=== PATIENT | female | born 1980 | race Two or more races ===

== ENCOUNTER → 2025-01-15 | Outpatient (CLI) | payer OTHER, SELFPAY ==
--- NOTE | 2025-01-15 09:25 | XR_ITS ---
Examination: Lumbar spine, 5 views Technique: Lumbar spine AP, lateral, coned lateral lower lumbar spine, bilateral obliques 5 views Exam date and time: January 15, 2025 0944 hours INDICATIONS: Work injury 2021 to the lower back with persistent lower back pain. FINDINGS: Moderate osteopenia Mild to moderate arthritic change facet joints No lumbar fracture Mild lumbar spondylosis Mild to moderate lumbar disc narrowing L5-S1 IMPRESSION: [id number] lumbar disc narrowing L5-S1
--- NOTE | 2025-01-15 09:25 | XR_ITS ---
Examination: Thoracic spine 2 views Technique one AP lateral thoracic spine 2 views Exam date and time: January 15, 2025 0944 hours INDICATIONS: Work injury to the back one year ago with persistent back pain. FINDINGS: Moderate osteopenia No thoracic fracture Mild diffuse thoracic disc narrowing Mild thoracic spondylosis IMPRESSION: Mild diffuse thoracic degenerative disc disease
== END | disposition home or self-care (01) ==
LOC: CDIM 09:18
PROVIDERS: Referring Provider Orthopaedic Surgery; Visit Provider Orthopaedic Surgery
DX: M48.07 Spinal stenosis, lumbosacral region (principal); M51.34 Other intervertebral disc degeneration, thoracic region
CPT/HCPCS: 72070; 72110

== ENCOUNTER → 2025-07-22 | Outpatient (CLI) | payer BC, SELFPAY ==
[2025-07-22 17:28] LABS: Basophils # (Auto) 0.0 Thou/mm3 (0.0-0.2); Basophils % (Auto) 0 % (0-2.5); Eosinophils # (Auto) 0.0 Thou/mm3 (0.0-0.5); Eosinophils % (Auto) 0 % (0-10); Hematocrit 38.9 % (36.0-46.0); Hemoglobin 12.7 g/dL (12.0-16.0); Immature Granulocytes Auto 0.03 Thou/mm3 (0.00-0.00); Lymphocytes # (Auto) 2.2 Thou/mm3 (1.0-4.8); Lymphocytes % (Auto) 23 % (10-50); Mean Corpuscular HGB Conc 32.6 g/dl (31.0-37.0); Mean Corpuscular Hemoglobin 30.2 pg (25.0-35.0); Mean Corpuscular Volume 92 fL (80-100); Monocytes # (Auto) 0.5 Thou/mm3 (0.0-0.8); Monocytes % (Auto) 6 % (0-12); Neutrophils # (Auto) 6.7 Thou/mm3 (1.8-7.7); Neutrophils % (Auto) 71 % (37-80); Nucleated Red Blood Cell # 0.00 Thou/mm3 (0.00-0.00); Nucleated Red Blood Cell % 0 /100 WBC (0); Platelet Count 327 Thou/mm3 (140-440); RDW Standard Deviation 42.5 fL (36.4-46.3); Red Blood Count 4.21 Miln/mm3 (4.00-5.20); White Blood Count 9.5 Thou/mm3 (3.6-11.0)
[2025-07-22 17:35] LABS: INR 1.0 (0.9-1.3); Partial Thromboplastin Time 27.9 Seconds (22.0-36.0); Prothrombin Time 10.7 Seconds (9.0-12.2)
[2025-07-22 17:39] LABS: Glucose Estimated Average 103 mg/dL (80-131); Hemoglobin A1C 5.2 % Hgb (4.8-6.0)
[2025-07-22 17:50] LABS: Alanine Aminotransferase 9 U/L (10-49); Albumin, Serum 4.2 gm/dL (3.5-5.0); Albumin/Globulin Ratio 1.7 (1.2-2.2); Alkaline Phosphatase 89 U/L (46-116); Anion Gap 8 (7-16); Aspartate Amino Transferase 14 U/L (0-34); BUN/Creatinine Ratio 16 Ratio (12-20); Bilirubin,Total 0.4 mg/dL (0.3-1.2); Blood Urea Nitrogen 11 mg/dL (9-23); Calcium 9.9 mg/dL (8.3-10.6); Calcium (Corrected) 9.9 mg/dL (8.5-10.1); Carbon Dioxide 27.1 mMol/L (20.0-31.0); Cardiac Risk Estimate 2.6 RATIO (3.7-5.6); Chloride 107 mMol/L (98-107); Cholesterol 167 mg/dL (132-200); Creatinine (Component) 0.7 mg/dL (0.6-1.3); Globulin 2.5 gm/dL (2.3-3.5); Glucose 89 mg/dL (74-106); HDL Cholesterol 64 mg/dL (40-60); LDL Cholesterol,Calculated 74 mg/dL (0-130); Osmolality,Calculated 281 (275-295); Potassium 4.0 mMol/L (3.4-5.1); Sodium 142 mMol/L (136-145); Total Protein 6.7 gm/dL (5.7-8.2); Triglycerides 144 mg/dL (30-150); eGFR > 60 See Note
[2025-07-22 18:47] LABS: Path Review Blood Smear Sent to Pathologist
[2025-07-22 19:50] LABS: Parathyroid Hormone Intact 110.6 pg/ml (18.5-88.0)
[2025-07-22 19:56] LABS: Ferritin 115 ng/mL (7.3-270.7); Iron 31 mcg/dL (50-170); Percent Iron Saturation 10 % (20-55); Total Iron Binding Capacity 299 mcg/dL (250-425); Unsaturated Iron Binding 268 (225-295)
[2025-07-22 19:57] LABS: Folate 9.31 ng/mL (>5.38); Vitamin B12 520 pg/mL (211-911); Vitamin D 25 Hydroxy Total 33.1 ng/mL (7.3-40.2)
== END | disposition home or self-care (01) ==
LOC: COPL 15:20
PROVIDERS: PCP Specialist; Referring Provider Specialist; Visit Provider Specialist
DX: R23.3 Spontaneous ecchymoses (principal); Z98.84 Bariatric surgery status
CPT/HCPCS: 36415; 80053; 80061; 82306; 82607; 82728; 82746; 83036; 83540; 83550; 83970; 85025; 85610; 85730

== ENCOUNTER → 2025-08-11 | Outpatient (CLI) | payer BC, SELFPAY ==
--- NOTE | 2025-08-11 09:15 | XR_ITS ---
Examination: Screening digital mammography, bilateral Computer aided detection 3-D breast Tomosynthesis, bilateral Date and time of exam: August 11, 2025 0931 hours, compared to mammograms dating to March 06, 2017 Indication: Screening, patient states right breast pain 4 months Technique: Nonmagnified MLO, CC views of the breasts to been obtained, reconstructed from 3-D Tomosynthesis images. R2 computer aided detection program utilized for evaluation of suspicious masses and/or abnormal calcifications. 3-D Tomosynthesis images obtained. Findings: Scattered areas of fibroglandular density. Surgical clips retroareolar region right breast with retraction of the nipple Benign calcifications. Implants appear intact. No interval suspicious masses Impression: BI-RADS Category 0: Incomplete: Need additional imaging evaluation Given the patient's presentation of right breast pain 4 months, recommend bilateral breast sonography follow-up
== END | disposition home or self-care (01) ==
LOC: CDIM 09:21
PROVIDERS: PCP Specialist; Referring Provider Specialist; Visit Provider Specialist
DX: Z12.31 Encounter for screening mammogram for malignant neoplasm of breast (principal); R92.8 Other abnormal and inconclusive findings on diagnostic imaging of breast
CPT/HCPCS: 77063; 77067

== ENCOUNTER → 2025-08-12 | Outpatient (CLI) | payer BC, SELFPAY ==
[2025-08-12 09:44] LABS: Basophils # (Auto) 0.0 Thou/mm3 (0.0-0.2); Basophils % (Auto) 1 % (0-2.5); Eosinophils # (Auto) 0.1 Thou/mm3 (0.0-0.5); Eosinophils % (Auto) 1 % (0-10); Hematocrit 38.8 % (36.0-46.0); Hemoglobin 12.8 g/dL (12.0-16.0); Immature Granulocytes Auto 0.01 Thou/mm3 (0.00-0.00); Lymphocytes # (Auto) 2.3 Thou/mm3 (1.0-4.8); Lymphocytes % (Auto) 35 % (10-50); Mean Corpuscular HGB Conc 33.0 g/dl (31.0-37.0); Mean Corpuscular Hemoglobin 30.5 pg (25.0-35.0); Mean Corpuscular Volume 93 fL (80-100); Monocytes # (Auto) 0.4 Thou/mm3 (0.0-0.8); Monocytes % (Auto) 6 % (0-12); Neutrophils # (Auto) 3.8 Thou/mm3 (1.8-7.7); Neutrophils % (Auto) 58 % (37-80); Nucleated Red Blood Cell # 0.00 Thou/mm3 (0.00-0.00); Nucleated Red Blood Cell % 0 /100 WBC (0); Platelet Count 301 Thou/mm3 (140-440); RDW Standard Deviation 42.7 fL (36.4-46.3); Red Blood Count 4.19 Miln/mm3 (4.00-5.20); White Blood Count 6.5 Thou/mm3 (3.6-11.0)
[2025-08-12 10:03] LABS: Parathyroid Hormone Intact 122.6 pg/ml (18.5-88.0)
[2025-08-12 10:06] LABS: Folate 9.26 ng/mL (>5.38); Vitamin B12 455 pg/mL (211-911); Vitamin D 25 Hydroxy Total 33.0 ng/mL (7.3-40.2)
[2025-08-12 10:21] LABS: Alanine Aminotransferase 9 U/L (10-49); Albumin, Serum 4.1 gm/dL (3.5-5.0); Albumin/Globulin Ratio 1.5 (1.2-2.2); Alkaline Phosphatase 84 U/L (46-116); Anion Gap 9 (7-16); Aspartate Amino Transferase 16 U/L (0-34); BUN/Creatinine Ratio 17 Ratio (12-20); Bilirubin,Total 0.8 mg/dL (0.3-1.2); Blood Urea Nitrogen 10 mg/dL (9-23); Calcium 9.6 mg/dL (8.3-10.6); Calcium (Corrected) 9.6 mg/dL (8.5-10.1); Carbon Dioxide 27.7 mMol/L (20.0-31.0); Cardiac Risk Estimate 2.5 RATIO (3.7-5.6); Chloride 108 mMol/L (98-107); Cholesterol 169 mg/dL (132-200); Creatinine (Component) 0.6 mg/dL (0.6-1.3); Globulin 2.8 gm/dL (2.3-3.5); Glucose 95 mg/dL (74-106); HDL Cholesterol 68 mg/dL (40-60); LDL Cholesterol,Calculated 87 mg/dL (0-130); Osmolality,Calculated 287 (275-295); Potassium 4.2 mMol/L (3.4-5.1); Sodium 145 mMol/L (136-145); Total Protein 6.9 gm/dL (5.7-8.2); Triglycerides 71 mg/dL (30-150); eGFR > 60 See Note
== END | disposition home or self-care (01) ==
LOC: COPL 08:19
PROVIDERS: PCP Specialist; Referring Provider Specialist; Visit Provider Specialist
DX: Z98.84 Bariatric surgery status (principal)
CPT/HCPCS: 36415; 80053; 80061; 82306; 82607; 82746; 83970; 85025

== ENCOUNTER → 2025-08-13 | Outpatient (CLI) | payer BC, SELFPAY ==
--- NOTE | 2025-08-13 11:51 | XR_ITS ---
Examination: Breast ultrasound complete, bilateral Date and time of exam: August 13, 2025 1150 hours INDICATIONS: Right breast pain beginning 6 months ago, 9:00 nodule 15 mm on right breast sonogram October 17, 2021 Technique: Real-time grayscale ultrasonographic imaging bilateral breasts, including all 4 quadrants as well as nipple retroareolar and axillary regions. Findings: Sonographic images right breast 9:00 mass lobular margins 13 x 10 mm Sonographic images left breast Benign cysts, no solid nodule IMPRESSION: BI-RADS Category 3: Probably benign findings Recommend continued 6 month right breast sonogram follow-up to document stability of 9:00 nodule described above
== END | disposition home or self-care (01) ==
LOC: CDIM 11:45
PROVIDERS: PCP Specialist; Referring Provider Specialist; Visit Provider Specialist
DX: N63.15 Unspecified lump in the right breast, overlapping quadrants (principal)
CPT/HCPCS: 76641

== ENCOUNTER → 2025-09-11 | Outpatient (CLI) | payer BC, SELFPAY ==
--- NOTE | 2025-09-11 | XR_ITS ---
Examination: Ribs, right, with PA chest, 4 views Technique: Chest PA, RIBS AP, RPO, LPO, 4 views Exam date and time: September 11, 2025 1210 hours INDICATIONS: Right rib pain beginning 3 days ago no trauma Findings: Normal heart size No pneumothorax. Lungs are clear Prominent osteopenia Intact appearing right ribs IMPRESSION: No pneumothorax pulmonary contusion or hemothorax No right rib abnormalities
== END | disposition home or self-care (01) ==
LOC: CDIM 11:40
PROVIDERS: PCP Specialist; Referring Provider Specialist; Visit Provider Specialist
DX: R07.89 Other chest pain (principal)
CPT/HCPCS: 71101

== ENCOUNTER → 2025-10-20 | Outpatient (CLI) | payer BC, SELFPAY ==
[2025-10-20 09:49] LABS: Basophils # (Auto) 0.0 Thou/mm3 (0.0-0.2); Basophils % (Auto) 1 % (0-2.5); Eosinophils # (Auto) 0.1 Thou/mm3 (0.0-0.5); Eosinophils % (Auto) 1 % (0-10); Hematocrit 37.3 % (36.0-46.0); Hemoglobin 12.2 g/dL (12.0-16.0); Immature Granulocytes Auto 0.01 Thou/mm3 (0.00-0.00); Lymphocytes # (Auto) 2.2 Thou/mm3 (1.0-4.8); Lymphocytes % (Auto) 32 % (10-50); Mean Corpuscular HGB Conc 32.7 g/dl (31.0-37.0); Mean Corpuscular Hemoglobin 29.5 pg (25.0-35.0); Mean Corpuscular Volume 90 fL (80-100); Monocytes # (Auto) 0.4 Thou/mm3 (0.0-0.8); Monocytes % (Auto) 6 % (0-12); Neutrophils # (Auto) 4.3 Thou/mm3 (1.8-7.7); Neutrophils % (Auto) 61 % (37-80); Nucleated Red Blood Cell # 0.00 Thou/mm3 (0.00-0.00); Nucleated Red Blood Cell % 0 /100 WBC (0); Platelet Count 314 Thou/mm3 (140-440); RDW Standard Deviation 40.7 fL (36.4-46.3); Red Blood Count 4.14 Miln/mm3 (4.00-5.20); White Blood Count 7.0 Thou/mm3 (3.6-11.0)
[2025-10-20 10:01] LABS: INR 1.0 (0.9-1.3); Partial Thromboplastin Time 27.8 Seconds (22.0-36.0); Prothrombin Time 10.4 Seconds (9.0-12.2)
[2025-10-20 10:17] LABS: Alanine Aminotransferase 10 U/L (10-49); Albumin, Serum 4.3 gm/dL (3.5-5.0); Albumin/Globulin Ratio 1.7 (1.2-2.2); Anion Gap 8 (7-16); Aspartate Amino Transferase 15 U/L (0-34); BUN/Creatinine Ratio 13 Ratio (12-20); Bilirubin,Total 0.6 mg/dL (0.3-1.2); Blood Urea Nitrogen 8 mg/dL (9-23); Calcium 9.6 mg/dL (8.3-10.6); Calcium (Corrected) 9.6 mg/dL (8.5-10.1); Carbon Dioxide 27.8 mMol/L (20.0-31.0); Chloride 106 mMol/L (98-107); Creatinine (Component) 0.6 mg/dL (0.6-1.3); Globulin 2.6 gm/dL (2.3-3.5); Glucose 94 mg/dL (74-106); Osmolality,Calculated 281 (275-295); Potassium 3.9 mMol/L (3.4-5.1); Sodium 142 mMol/L (136-145); Total Protein 6.9 gm/dL (5.7-8.2); eGFR > 60 See Note
[2025-10-20 10:31] LABS: Alkaline Phosphatase 86 U/L (46-116)
== END | disposition home or self-care (01) ==
PROVIDERS: PCP Specialist; Referring Provider Internal Medicine Gastroenterology; Visit Provider Internal Medicine Gastroenterology
DX: R10.9 Unspecified abdominal pain (principal)
CPT/HCPCS: 36415; 80053; 85025; 85610; 85730